=== PATIENT | female | born 2000 | race Caucasian/White ===

== ENCOUNTER 2020-08-12 19:55 | Emergency (ER) | payer BC, OTHER ==
[~2020-08-12 19:55] MED LIST: ATROVENT HFA12.9 GM INH; CLINDAMYCIN HC150 MG PO; MOTRIN SUS100 MG/5 M PO; NAPROSYN500 MG PO; NORCO 5-325 TA1 EACH PO; POVIDONE-IOD28.35 GM TP; PREDNISONE20 MG PO; PROVENTIL HFA6.7 GM INH; ROBITUSSIN DM UD5 ML PO; TESSALON PERLE100 MG PO; VITAMIN C250 MG PO; tussionex PO
[2020-08-12 21:25] LABS: HEMOGLOBIN 13.1 gm/dl (12.3-15.3); RED BLOOD COUNT 4.48 M/UL (4.00-5.10); WHITE BLOOD COUNT 11.2 K/UL (4.5-11.0)
[2020-08-12 21:41] LABS: BUN/CREATININE RATIO 20 (0-10)
== END 2020-08-13 00:38 | disposition home or self-care (01) ==
LOC: ER1 19:55
PROVIDERS: Physician Assistant
DX: R10.30 Lower abdominal pain, unspecified (principal); R11.2 Nausea with vomiting, unspecified
CPT/HCPCS: 80053; 81001; 84703; 85025; 96372; 99284; J1885; Q9967